=== PATIENT | female | born 1960 | race African-American/Black ===

== ENCOUNTER 2017-12-30 23:28 | Emergency (ER) | payer OTHER ==
[~2017-12-30] VITALS: Ht 160 cm; Wt 78.9 kg
[~2017-12-30 23:28] MED LIST: ATIVAN0.5 M1 PO; EPIPEN 2-P0.3 MG/0.3 IM; LEVSIN/SL0.125 MG SL; LOPRESSOR 25MG25 MG PO; MOBIC15 M1 PO; MOTRIN 600 MG600 MG PO; NASONEX0.05 MG/Ac NASB; PREDNISONE10 M2 PO; PREDNISONE50 M1 PO; VITAMIN D32000 UNIT PO; ZOFRAN4 M1 SL; ZYRTEC ALLERGY10 MG PO
[2017-12-31 00:11] VITALS: BP 148/84
--- NOTE | 2017-12-31 02:07 | ED GENERAL ADULT ---
History of Present Illness General Chief Complaint: General Adult Stated Complaint: PADILLA, FLU SYMPTOMS Source: patient Exam Limitations: no limitations Vital Signs & Intake/Output Vital Signs & Intake/Output Vital Signs Date Time Temp Pulse Resp B/P B/P Pulse O2 O2 Flow FiO2 Mean Ox Delivery Rate 12/31 0011 96.0 80 18 148/84 98 Room Air Allergies Coded Allergies: ciprofloxacin (From CIPRO) (Mild, SEVERE STOMACH PAIN 10/04/17) cat dander (ALLERGY TESTED POSITIVE, WHOLE ARM SWELLED 10/04/17) Reconcile Medications CETIRIZINE HCL (Zyrtec) 10 MG SGL 1 CAP PO DAILY ALLERGIES (Reported) Cholecalciferol (Vitamin D3) (Vitamin D3) 2,000 UNIT CAPSULE 1 CAP PO EOD SUPPLEMENT (Reported) Epinephrine (Epipen 2-[place]) 0.3 MG/0.3 ML AUTO.INJCT 1 DOSE IM ONCE PRN allergy Lorazepam (Ativan) 0.5 MG TABLET 1 TAB PO TID PRN ANXIETY Meloxicam (Mobic) 15 MG TABLET 1 TAB PO DAILY PRN pain Metoprolol Tartrate (Lopressor) 25 MG TAB 1 TAB PO BID ANXIETY/HEART/BP ( Reported) Mometasone Furoate (Nasonex) 0.05 MG/Actuation SPR 1 SPRAY NASB DAILY ALLERGIES (Reported) Prednisone 50 MG TABLET 1 TAB PO DAILY allergy Prednisone 10 MG TABLET 4 TAB PO QDAY STEROID TAPER 4 PILLS X 3 DAYS 3 PILLS X 3 DAYS 2 PILLS X 3 DAYS 1 PILL X 3 DAY Triage Note: PT TO ER C/C HEADACHE, SINUS PRESSURE, AND POST NASAL X 1 WEEK. AFEBRILE. HAD CHEST X RAY AT URGENT CARE YESTERDAY. Triage Nurses Notes Reviewed? yes Onset: Gradual Duration: day(s): Timing: single episode today Injury Environment: home Severity: mild Modifying Factors: Improves With: rest. Associated Symptoms: cough HPI: 57 yo woman h/o lung cancer, s/p resection of left lung, presents with cough, body aches, and fever x 5 days She was seen at an urgent care yesterday, had a benign cxr, a negative strep test, and was given a rx for abx, and told to take it in 2 days. She notes that her temperature decreased to 97.0. She notes scant sputum, along with nasal congestion. She has no chest pain, dyspnea, wheezing, dizziness, nausea, vomiting, diarrhea. She is otherwise well. Past History Travel History Traveled to [place] past 21 day No Medical History Any Pertinent Medical History? see below for history Neurological: NONE EENT: NONE Cardiovascular: PALPATATIONS Respiratory: NONE Gastrointestinal: NONE Hepatic: NONE Renal: NONE Musculoskeletal: NONE Psychiatric: anxiety Endocrine: NONE Blood Disorders: NONE Cancer(s): lung cancer INSPECTOR WREATH/Reproductive: NONE Surgical History Surgical History: left lung resection in 2017 for lung cancer Psychosocial History What is your primary language Yakut Tobacco Use: Quit >30 days ago Family History Hx Contributory? No Review of Systems Review of Systems Constitutional: Reports: no symptoms. EENTM: Reports: no symptoms. Respiratory: Reports: no symptoms. Cardiovascular: Reports: no symptoms. GI: Reports: no symptoms. Genitourinary: Reports: no symptoms. Musculoskeletal: Reports: no symptoms. Skin: Reports: no symptoms. Neurological/Psychological: Reports: no symptoms. Hematologic/Endocrine: Reports: no symptoms. Immunologic/Allergic: Reports: no symptoms. All Other Systems: Reviewed and Negative Physical Exam Physical Exam General Appearance: well developed/nourished, no apparent distress Head: atraumatic, normal appearance Eyes: Bilateral: normal appearance. Ears, Nose, Throat: normal pharynx, normal ENT inspection Neck: normal inspection, supple, full range of motion, JVD, limited range of motion Respiratory: no respiratory distress, diminished breath sounds on left, no wheeze, no rhonchi. Cardiovascular: regular rate/rhythm Gastrointestinal: normal bowel sounds, soft, non-tender Back: normal inspection, normal range of motion Extremities: normal inspection, normal capillary refill, normal range of motion, no edema Neurologic/Psych: no motor/sensory deficits, awake, alert, oriented x 3 Skin: intact, normal color, warm/dry Core Measures ACS in differential dx? No CVA/TIA Diagnosis: No Sepsis Present: No Sepsis Focused Exam Completed? No Progress Differential Diagnoses I considered the following diagnoses in my evaluation of the patient: bronchitis vs influenza vs other. Plan of Care: Orders Procedure Date/time Status RAPID VIRAL INFLUENZA A 12/31 10 Complete Microbiology 12/31 13 NASOPHARYN: Influenza Virus A & B Rapid Smear - COMP Initial ED EKG: none Departure Departure Disposition: HOME OR SELF CARE Condition: Stable Clinical Impression Primary Impression: Bronchitis Referrals: Gabby Ortiz MD (PCP/Family) Departure Forms: Customer Survey General Discharge Information Critical Care Note Critical Care Note Critical Care Time: non-applicable
== END 2017-12-31 02:47 ==
LOC: ERH 23:28
DX: J40 Bronchitis, not specified as acute or chronic (principal); Z87.891 Personal history of nicotine dependence
CPT/HCPCS: 87804; 87804-59